=== PATIENT | female | born 1960 | race Caucasian/White ===

== ENCOUNTER 2018-12-01 13:30 | Outpatient (CLI) | payer OTHER ==
--- NOTE | 2018-12-01 18:28 | CONS ---
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 She also has significant lumbar spine disease as well as significant radiculopathy. I discussed with the patient that her symptoms are likely combined from both her lumbar spine as well as her hip pathology. I also discussed with the patient that secondary to her BMI over 40 she is a high risk for surgery. Recommending that she continues to lose weight in order to improve her risk benefit profile. She understood this and is going to continue to lose weight so she can undergo total hip arthroplasty. I also discussed the patient secondary to her lumbar spine disease she is at increased risk of dislocation. Plan: Weight loss Follow-up 6 months If and when the patient will have a total hip arthroplasty. Patient will most likely have a dual mobility implant secondary to the severe lumbar spine disease. Consultation Date/Type/Reason Admit Date/Time Date of Consultation: Dec 01, 2018 Reason for Consultation Bilateral hip pain Date/Time of Note DATE: 12/01/18 TIME: 18:16 Hx of Present Illness This is a 58-year-old female who presents with a history of left and right hip pain. Patient states the pain is in the back, lateral hip and groin. The pain is with weight bearing and any movement of the hips. She does have pain that radiates down to her feet especially on the right side. It is ruddy cribed as a sharp, stabbing, and dull. The pain is rated as a 8/10 with activity and 5/10 at rest. Walking tolerance is several steps. Mostly uses wheelchair for the last 6-8 months. The patient does admit to a limp. Has significant difficulty with shoes and socks. No history of childhood or adolescent hip disease. Has risk factors for avascular necrosis. There are symptoms to suggest referred pain from the back with radicular symptoms. Treatment to date has included oral anti-inflammatories, activity modification, support devices. The patient states that treatment to date has not provided adequate relief of symptoms, prompting consultation regarding operative and nonoperative treatment for left and right hip pain. Duration: Years Injury: No Walking tolerance: Several steps Limp: Yes Support: Wheelchair for last 6-8 months Stairs: Does not use Physical Therapy: Yes Injections: Yes, steroid NSAID's: As needed Prior surgery: No Back pain: Yes Knee pain: Yes Risk of AVN : Yes Patient denies fever, chills, shortness of breath, chest pain, nausea/vomiting, constipation, diarrhea. Positive for numbness and tingling in hands and feet. Past Medical History Cervical lumbar radiculopathy Visual loss Osteoarthritis Osteoporosis Past Surgical History Thoracic spine surgery 1981 Family History Significant Family History: no pertinent family hx Social History Alcohol Use: occasionally Smoking Status: Former smoker Drug Use: none Exam/Review of Systems Exam Vitals Weight: 249 pounds Height: 5 feet 4 inches BMI: 42.7 Exam General: Awake, alert, in no acute distress, pleasant and cooperative Heart: regular rhythm Lungs: breathing comfortably, no tachypnea or dyspnea Musculoskeletal: Well developed morbidly obese female with a large pannus in no apparent distress. Gait demonstrates an fixed extremely antalgic gait. Patient only able to walk a couple steps from wheelchair to exam table. There is tenderness over trochanteric bursa or IT band. ----- Range of motion: Right Hip Flexion: 60 Extension: 15 degree flexion contracture Internal rotation: 10 External rotation: 20 Abduction: 10 Adduction: 0 ----- Range of motion: Left Hip Flexion: 60 Extension: 15 degree flexion contracture Internal rotation: 10 External rotation: 10 Abduction: 10 Adduction: 0 ----- Sitting there is pelvic obliquity. Pain at the extremes of motion of the affected hip. Skin was intact throughout both lower extremities. Sensation intact to light touch but decreased in a sural, saphenous, deep peroneal, superficial peroneal, medial and lateral plantar nerve distribution. Neurovascular exam showed 4/5 strength in the abductors, quads, EHL/tibialis anterior/gastroc. Normal and symmetrical pulses were palpated in both the dorsalis pedis and posterior tibial arteries. There is no sign of venous stasis. Imaging Imaging The patient received a full set of films and personally reviewed by myself today in clinic including an AP pelvis and an AP and lateral of the affected hip. The right and left hips are reduced. There is complete loss of joint space in bilateral hip joints. There is destruction of the femoral heads with collapse.. There is osteophyte formation. There is subchondral sclerosis. There are large subchondral cysts. There is no significant deformity of the the proximal femur, femoral neck, or acetabulum. The pelvis is in continuity. Limited examination of the lumbar spine demonstrates severe degenerative disc disease with degenerative scoliosis, osteophytes. Bone quality radiographically: DUNG Adkins MD Dec 01, 2018 18:28
--- NOTE | 2018-12-03 17:56 | RADRPT ---
PROCEDURE: XR Pelvis and Hips. CLINICAL INDICATION: Pelvic pain. Bilateral hip pain. TECHNIQUE: Five views. Frontal pelvis. Frontal and lateral right hip. Frontal and lateral left h ip. COMPARISON: No prior studies are available for comparison. FINDINGS: There is no fracture or dislocation. The soft tissues are normal. There are severe degenerative changes of both hips with joint space narrowing, osteophytes, subchondr al sclerosis, and deformity with left slightly worse than right. There is no radiopaque foreign body. IMPRESSION: 1. Severe degenerative changes of both hips with left slightly worse than right. 2. Otherwise unremarkable x-ray pelvis and bilateral hips. RPTAT: QQ .Mani Thompson MD, MD Date Time Electronically viewed and signed by .Mani Thompson MD, on 12/03/2018 17:55 .R/
== END 2018-12-01 23:59 | disposition home or self-care (01) ==
LOC: HKI 13:30
PROVIDERS: ATTEND Orthopaedic Surgery Adult Reconstructive Orthopaedic Surgery
DX: M16.0 Bilateral primary osteoarthritis of hip (principal); M54.16 Radiculopathy, lumbar region; Z87.891 Personal history of nicotine dependence; E66.01 Morbid (severe) obesity due to excess calories
CPT/HCPCS: 73523; Z7500; G0463